=== PATIENT | female | born 1985 | race Asian ===

== ENCOUNTER 2019-09-18 11:34 | Outpatient (CLI) | payer BC ==
[~2019-09-18] VITALS: Ht 157.5 cm; Wt 70.0 kg
[2019-09-24] MEDS ORDERED: IBUP-1222 PO (13:42)
[2019-09-24] MEDS ORDERED: DOCU-131 PO (13:47)
== END 2019-09-18 13:50 | disposition home or self-care (01) ==
LOC: LDOP 11:34
PROVIDERS: ATTEND Obstetrics & Gynecology
DX: O36.8130 Decreased fetal movements, third trimester, not applicable or unspecified (principal); Z3A.39 39 weeks gestation of pregnancy
CPT/HCPCS: 59025; 76819; 99201; G0463